=== PATIENT | female | born 1990 | race Two or more races ===

== ENCOUNTER → 2024-03-03 | Outpatient (CLI) | payer MEDICAID | END | disposition home or self-care (01) | LOC: LAB 11:20 | PROVIDERS: ATTEND Obstetrics & Gynecology | DX: O09.891 Supervision of other high risk pregnancies, first trimester (principal) | CPT/HCPCS: 36415; 84702 ==

== ENCOUNTER 2024-03-16 22:09 | Emergency (ER) | payer MEDICAID ==
[~2024-03-16] VITALS: Ht 165.1 cm; Wt 78.0 kg
[2024-03-16 23:54] LABS: Eosinophils # (auto) 0.3 10 ^3/uL (0-0.8); Hemoglobin 12.7 g/dL (12.2-16.2); Mean Corpuscular Hemoglobin 26.3 pg (28.0-32.0); Neutrophils # (auto) 7.4 10 ^3/uL (1.6-8.6)
[2024-03-16 23:56] LABS: Basophils # (auto) 0 10 ^3/uL (0-0.2); Basophils % (auto) 0.3 % (0.0-2.0); Eosinophils % (auto) 2.2 % (0.0-7.0); Hematocrit 39.3 % (36.0-46.0); Lymphocytes # (auto) 4.5 10 ^3/uL (0.4-5.4); Lymphocytes % (auto) 34.6 % (10.0-50.0); Mean Corpuscular Hgb Conc. 32.3 g/dL (32.0-36.0); Mean Corpuscular Volume 81.4 fL (80.0-100.0); Monocytes # (auto) 0.7 10 ^3/uL (0-1.3); Monocytes % (auto) 5.2 % (0.0-12.0); Neutrophils % (auto) 57.7 % (37.0-80.0); Red Blood Cells 4.83 10^6/uL (4.0-5.20); Red Cell Distribution Width 13.9 % (11.8-14.3); White Blood Cell 12.9 10^3/uL (4.4-10.8)
[2024-03-16 23:59] LABS: Urine Bacteria None Seen /hpf (None Seen)
[2024-03-17 00:06] LABS: Alanine Aminotransferase 28 U/L (7-40); Albumin 4.3 g/dL (3.2-4.8); Alkaline Phosphatase 68 U/L (46-116); Anion Gap 7 (5-15); Aspartate Aminotransferase 23 U/L (13-40); BUN/Creatinine Ratio 15.6 (10.0-20.0); Blood Urea Nitrogen 10 mg/dL (9-23); Calcium 9.3 mg/dL (8.7-10.4); Carbon Dioxide 24 mmol/L (20-30); Chloride 107 mmol/L (98-107); Glucose 94 mg/dL (74-106); Potassium 3.4 mmol/L (3.5-5.1); Sodium 138 mmol/L (136-145)
[2024-03-17 00:07] LABS: Bilirubin, Total 0.4 mg/dL (0.2-1.0); Total Protein 7.5 g/dL (5.7-8.2)
[2024-03-17] MEDS: SODIUM CHLORIDE 0.9% 1,000 ML IV ONE (00:30)
[2024-03-17 00:40] LABS: Urine Blood 3+ /uL (Negative); Urine Clarity Ex.Turbid (Clear); Urine Color Red (Yellow); Urine Protein, UAD 2+ (Negative); Urine Urobilinogen Normal (Negative); Urine WBC 7 /hpf (0 - 5)
[2024-03-17 01:30] VITALS: TEMP 98.1
[2024-03-17 01:39] VITALS: PULSE 90; RESP 15; O2SAT 98
[2024-03-17 02:00] VITALS: BP 119/74; PULSE 86; RESP 10; O2SAT 97
[2024-03-17] MEDS ORDERED: MISO200T67 PO (02:38)
[2024-03-17] MEDS ORDERED: ZOFR4T PO (02:38)
== END 2024-03-17 03:10 | disposition home or self-care (01) ==
LOC: ER 22:09
DX: O03.9 Complete or unspecified spontaneous abortion without complication (principal); R10.2 Pelvic and perineal pain; Z79.899 Other long term (current) drug therapy; Z3A.08 8 weeks gestation of pregnancy
CPT/HCPCS: 36415; 76801; 76817; 80053; 81001; 84702; 85025; 86850; 86900; 86901; 96360; 99284; J7030

== ENCOUNTER 2024-08-15 15:08 | Emergency (ER) | payer MEDICAID ==
[~2024-08-15] VITALS: Ht 154.9 cm; Wt 79.4 kg
[~2024-08-15 15:08] MED LIST: MISO200T67 PO; ZOFR4T PO
[2024-08-15 15:36] VITALS: BP 139/88; PULSE 95; RESP 16; TEMP 97.7; O2SAT 98
[2024-08-15] MEDS ORDERED: CYCL-837 PO (15:42)
[2024-08-15] MEDS: KETOROLAC TROMETH 30 MG/ML 1ML VIAL IM ONE (15:42)
[2024-08-15] MEDS ORDERED: IBUP-1455 PO (15:42)
== END 2024-08-15 16:57 | disposition home or self-care (01) ==
LOC: ER 15:08
DX: S16.1XXA Strain of muscle, fascia and tendon at neck level, initial encounter (principal); S39.012A Strain of muscle, fascia and tendon of lower back, initial encounter; V49.9XXA Car occupant (driver) (passenger) injured in unspecified traffic accident, initial encounter; Y93.89 Activity, other specified; Y92.488 Other paved roadways as the place of occurrence of the external cause; Y99.8 Other external cause status
CPT/HCPCS: 96372; 99283; J1885

== ENCOUNTER 2024-10-14 17:20 | Emergency (ER) | payer MEDICAID ==
[~2024-10-14] VITALS: Ht 142.2 cm; Wt 81.0 kg
[~2024-10-14 17:20] MED LIST changes: +CYCL-837 PO; +IBUP-1455 PO
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
--- NOTE | 2024-10-14 18:45 | DVH ---
INDICATION: Cervical radiculopathy COMPARISON: None TECHNIQUE: 3 views of the cervical spine were obtained. FINDINGS: The cervical vertebral alignment is normal. The predental space is normal. The intervertebral disc spaces are well-maintained. No significant facet arthropathy is noted. No acute fracture, vertebral compression deformity or aggressive osseous lesions. The imaged lung apices are unremarkable. IMPRESSION: No acute fracture.
[2024-10-14 18:48] VITALS: BP 150/81; PULSE 75; RESP 18; TEMP 98.2; O2SAT 100
[2024-10-14] MEDS: GABAPENTIN 300 MG CAP PO ONE (19:01)
[2024-10-14] MEDS ORDERED: GABA-1250 PO (19:13)
--- NOTE | 2024-10-18 10:20 | ECG ---
[facility] Test Date: 2024-10-14 Test Time: 17:37:48 Pat Name: JANETH GARCIA Department: ER Room: Gender: F Research Aide: DIONNA : 1990 Requested By: AQUILINO ABBOTT Order Number: [id number] Reading MD: Jaspreet Sosa Measurements Intervals Petros Rate: 90 P: 44 MI: 140 QRS: 43 QRSD: 82 T: 8 QT: 363 QTc: 444 Interpretive Statements Sinus rhythm Electronically Signed On 10-21-2024 9:48:20 PST by Jaspreet Sosa Please click the below link to view image of tracing.
== END 2024-10-14 19:41 | disposition home or self-care (01) ==
LOC: ER 17:20
DX: M54.12 Radiculopathy, cervical region (principal); Z79.899 Other long term (current) drug therapy
CPT/HCPCS: 72040; 82962; 93005